=== PATIENT | male | born 1945 | race Caucasian/White ===

== ENCOUNTER 2024-06-25 09:47 | Inpatient (IN) | payer MEDICARE, OTHER ==
[~2024-06-25] VITALS: Ht 170.2 cm; Wt 59.0 kg
[~2024-06-25 09:47] MED LIST: ACET-9535 PO; AMIO200T62 PO; ASPI-1205 PO; CEPH-588 PO; DEC1 PO; DULO30EC PO; ENAL5TAB48 PO; HYDR-1100 PO; LEVO0.2T5 PO; METO50TE2 PO; MODA200T46 PO; ONDA-188 PO
[2024-06-25 09:53] VITALS: BP 94/52; PULSE 103; RESP 20; TEMP 98
[2024-06-25 10:35] LABS: BASOPHILS % (AUTO) 0.2 % (0.0-2.0); EOSINOPHILS % (AUTO) 0.3 % (0.0-4.0); HEMATOCRIT 30.5 % (36-52); HEMOGLOBIN 10.5 g/dL (12.0-18.0); LYMPHOCYTES # (AUTO) 0.5 K/uL (2.0-11.5); LYMPHOCYTES % (AUTO) 4.3 % (20.5-51.1); MEAN CORPUSCULAR HEMOGLOBIN 33 pg (27-31); MEAN CORPUSCULAR HGB CONC 34 g/dL (33-37); MEAN CORPUSCULAR VOLUME 94.8 fL (80-94); MONOCYTES % (AUTO) 8.3 % (1.7-9.3); NEUTROPHILS # (AUTO) 9.9 K/uL (1.8-7.7); NEUTROPHILS % (AUTO) 86.9 % (42.2-75.2); PLATELET COUNT (AUTO) 160 K/uL (140-450); RED BLOOD CELL COUNT(AUTO) 3.22 MIL/uL (4.20-6.10); RED CELL DISTRIBUTION WIDTH 13.2 % (11.6-13.7); WHITE BLOOD COUNT (AUTO) 11.4 K/uL (4.8-10.8)
[2024-06-25] MEDS: NACL 0.9% 1,000 ML IV ONE (10:40)
[2024-06-25 10:48] LABS: ANION GAP 11.7 (8-16); CALCIUM 8.6 mg/dL (8.5-10.1); CARBON DIOXIDE 27.1 mmol/L (21-32); CHLORIDE 96 mmol/L (98-107); CREATININE 1.2 mg/dL (0.6-1.3); GLUCOSE 126 mg/dL (74-106); SODIUM SERUM 132 mmol/L (136-145); UREA NITROGEN, BLOOD 21 mg/dL (7-18)
[2024-06-25 10:53] LABS: POTASSIUM 2.8 mmol/L (3.5-5.1)
[2024-06-25] MEDS: POTASSIUM CHLORIDE 10 MEQ TABER PO ONE (11:17)
[2024-06-25] MEDS: MORPHINE SULFATE 4 MG/ML SYR IVP ONE (12:31)
[2024-06-25] MEDS: KETOROLAC 30 MG/ML VIAL IVP ONE (13:43)
[2024-06-25] MEDS ORDERED: ONDANSETRON 4 MG/2 ML VIAL IVP PRN (15:10)
[2024-06-25] MEDS ORDERED: ALBUTEROL 0.083% 2.5 MG/3 ML NEBU INH PRN (15:10)
[2024-06-25] MEDS ORDERED: ACETAMINOPHEN 325 MG TAB PO PRN (15:10)
[2024-06-25] MEDS: NACL 0.9% 1,000 ML IV SCH (15:42)
[2024-06-25] MEDS ORDERED: SACU1TAB5 PO (15:51)
[2024-06-25] MEDS ORDERED: BENZ200C4 PO (15:51)
[2024-06-25] MEDS ORDERED: MULT-2579 PO (15:55)
[2024-06-25] MEDS ORDERED: PANT40EC56 PO (15:55)
[2024-06-25] MEDS ORDERED: PRED10TA5 PO (15:55)
[2024-06-25] MEDS ORDERED: FLUT1BLS3 INH (15:55)
[2024-06-25 16:30] VITALS: PULSE 102; RESP 18; O2SAT 96
[2024-06-25] MEDS ORDERED: IBUPROFEN 600 MG TAB PO PRN (17:00)
[2024-06-25] MEDS ORDERED: KETOROLAC 30 MG/ML VIAL IVP PRN (17:00)
[2024-06-25] MEDS ORDERED: KETOROLAC 15 MG/ML VIAL IVP PRN (17:30)
[2024-06-25] MEDS: MORPHINE SULFATE 2 MG/ML SYR IVP PRN (17:40)
[2024-06-25 20:00] VITALS: BP 102/47; PULSE 88; PULSE 94; RESP 18; RESP 20; TEMP 97.4; O2SAT 92
[2024-06-25] MEDS: HYDROcodone/APAP 5/325 MG 1 TAB TAB PO ONE (20:43)
[2024-06-26] VITALS: BP 107/62; PULSE 82; PULSE 89; RESP 18; TEMP 98; O2SAT 93
[2024-06-26] MEDS: traZODone 50 MG TAB PO ONE (01:59)
[2024-06-26 04:15] VITALS: BP 118/70; PULSE 69; PULSE 78; RESP 18; TEMP 97.7; O2SAT 97
[2024-06-26 07:03] LABS: ANION GAP 11.4 (8-16); CALCIUM 8.2 mg/dL (8.5-10.1); CARBON DIOXIDE 24.5 mmol/L (21-32); CHLORIDE 106 mmol/L (98-107); GLUCOSE 89 mg/dL (74-106); POTASSIUM 3.9 mmol/L (3.5-5.1); SODIUM SERUM 138 mmol/L (136-145); UREA NITROGEN, BLOOD 27 mg/dL (7-18)
[2024-06-26 07:06] LABS: BASOPHILS % (AUTO) 0.3 % (0.0-2.0); EOSINOPHILS # (AUTO) 0.1 K/uL (0-0.4); EOSINOPHILS % (AUTO) 1.1 % (0.0-4.0); LYMPHOCYTES # (AUTO) 1.1 K/uL (2.0-11.5); LYMPHOCYTES % (AUTO) 13.7 % (20.5-51.1); MEAN CORPUSCULAR HEMOGLOBIN 33 pg (27-31); MEAN CORPUSCULAR HGB CONC 35 g/dL (33-37); MEAN CORPUSCULAR VOLUME 95.8 fL (80-94); MONOCYTES # (AUTO) 0.8 K/uL (0.8-1.0); MONOCYTES % (AUTO) 9.4 % (1.7-9.3); NEUTROPHILS # (AUTO) 6.1 K/uL (1.8-7.7); NEUTROPHILS % (AUTO) 75.5 % (42.2-75.2); PLATELET COUNT (AUTO) 127 K/uL (140-450); RED BLOOD CELL COUNT(AUTO) 2.71 MIL/uL (4.20-6.10); RED CELL DISTRIBUTION WIDTH 13.4 % (11.6-13.7); WHITE BLOOD COUNT (AUTO) 8.1 K/uL (4.8-10.8)
[2024-06-26 07:29] VITALS: PULSE 78; RESP 19; O2SAT 99
[2024-06-26] MEDS ORDERED: TRAZ-343 PO (07:36)
[2024-06-26 08:00] VITALS: BP 112/62; PULSE 67; PULSE 72; RESP 18; TEMP 97.1; O2SAT 99
[2024-06-26] MEDS: ASPIRIN 81 MG TAB.CHEW PO SCH (10:17)
[2024-06-26] MEDS: HYDROcodone/APAP 7.5/325 MG 1 TAB PO PRN (10:18)
[2024-06-26 10:24] VITALS: BP 135/68; PULSE 72; RESP 20; TEMP 97.1
[2024-06-26] MEDS: LEVOTHYROXINE 0.1 MG TAB PO SCH (10:45)
[2024-06-26] MEDS ORDERED: VALSARTAN PO SCH (21:00)
[2024-06-26] MEDS ORDERED: LEVOTHYROXINE 0.1 MG TAB PO SCH (21:00)
[2024-06-26] MEDS ORDERED: hydrALAZINE 25 MG TAB PO SCH (21:00)
[2024-06-26] MEDS ORDERED: traZODone 50 MG TAB PO SCH (21:00)
[2024-06-26] MEDS ORDERED: NON-FORMULARY ITEM (Hydralazine HCl (Hydralazine Hcl) 1 TAB) PO SCH (21:00)
[2024-06-26] MEDS ORDERED: SACUBITRIL PO SCH (21:00)
[2024-06-27] MEDS ORDERED: AMIODARONE 200 MG TAB PO SCH (09:00)
[2024-06-27] MEDS ORDERED: DULoxetine 30 MG CAPDR PO SCH (09:00)
[2024-06-27] MEDS ORDERED: ENALAPRIL 5 MG TAB PO SCH (09:00)
[2024-06-27] MEDS ORDERED: PANTOPRAZOLE 40 MG TABEC PO SCH (09:00)
[2024-06-27] MEDS ORDERED: METOPROLOL SUCCINATE 50 MG TABER PO SCH (09:00)
== END 2024-06-26 11:25 | disposition home or self-care (01) | DRG 641 ==
LOC: MED 09:47 → MTU 15:11
PROVIDERS: ADMIT Student in an Organized Health Care Education/Training Program; ATTEND Student in an Organized Health Care Education/Training Program
DX: E86.0 Dehydration (principal); K52.9 Noninfective gastroenteritis and colitis, unspecified; E87.1 Hypo-osmolality and hyponatremia; G89.29 Other chronic pain; Z20.822 Contact with and (suspected) exposure to COVID-19; E03.9 Hypothyroidism, unspecified; I10 Essential (primary) hypertension; Z79.82 Long term (current) use of aspirin; Z79.899 Other long term (current) drug therapy; Z85.038 Personal history of other malignant neoplasm of large intestine
CPT/HCPCS: 36415; 71045; 72040; 72100; 73030; 80048; 83880; 84484; 85025; 87081; 93005; 93880; 96361; 96374; 96375; 99285; J1885; J2270; Q0092